=== PATIENT | male | born 1970 | race Two or more races ===

== ENCOUNTER 2017-01-28 16:55 | Inpatient (IN) | payer SELFPAY ==
[~2017-01-28] VITALS: Ht 177.8 cm; Wt 73.0 kg
[~2017-01-28 16:55] MED LIST: IOHEXOL-300 100 ML BOTTLE ONE; SODIUM CHLORIDE 0.9% 10ML VIAL ONE
[2017-01-28] MEDS ORDERED: KETOROLAC 30MG/ML VIAL IV STA (17:22)
[2017-01-28] MEDS ORDERED: SODIUM CHLORIDE 0.9% 1,000 ML IV ONE (17:22)
[2017-01-28 17:39] LABS: BASOPHILS % 0.7 % (0.0-2.0); EOSINOPHILS % 3.2 % (0.0-5.0); HEMATOCRIT. 43.9 % (42.0-52.0); HEMOGLOBIN. 15.2 g/dL (14.0-18.0); LYMPHOCYTES % 24.9 % (20.0-50.0); MEAN CORPUSCULAR HEMOGLOBIN 32.1 pg (28.0-32.0); MEAN CORPUSCULAR VOLUME 92.4 fL (80.0-94.0); MEAN PLATELET VOLUME 8.4 fl (7.4-10.4); MONOCYTES % 11.7 % (2.0-8.0); NEUTROPHILS % 59.5 % (40.0-76.0); PLATELET 232 x1000/uL (130-400); RED BLOOD CELL COUNT 4.75 mill/uL (4.7-6.1); RED CELL DISTRIBUTION WIDTH 13.4 % (11.6-14.6)
[2017-01-28 17:41] LABS: CHLORIDE 107 mEq/L (98-107)
[2017-01-28 17:44] LABS: CARBON DIOXIDE 28 mEq/L (21-32)
[2017-01-28] MEDS ORDERED: ONDANSETRON HCL 4MG/2ML VIAL IV STA (18:37)
[2017-01-28] MEDS ORDERED: MORPHINE SULFATE 4 MG/ML CPJ (NOT FOR IM USE) IV STA (18:37)
[2017-01-28 18:53] LABS: CLARITY URINE CLEAR (CLEAR); COLOR URINE YELLOW (YELLOW); GLUCOSE URINE NEGATIVE (NEGATIVE); KETONES URINE NEGATIVE (NEGATIVE); LEUKOCYTE ESTERASE URINE NEGATIVE (NEGATIVE); NITRITE URINE NEGATIVE (NEGATIVE); OCCULT BLOOD URINE NEGATIVE (NEGATIVE); PROTEIN URINE NEGATIVE (NEGATIVE); SPECIFIC GRAVITY URINE 1.011 (1.005-1.030); UROBILINOGEN URINE 0.2 E.U./dL (0.2-1.0)
[2017-01-28] MEDS ORDERED: LEVOFLOXACIN 750MG PREMIX 150 ML IV ONE (20:30)
[2017-01-28] MEDS ORDERED: SODIUM CHLORIDE 0.9% 1000ML BAG (SEPSIS BOLUS) IV ONE (20:30)
[2017-01-28] MEDS ORDERED: MORPHINE SULFATE 4 MG/ML CPJ (NOT FOR IM USE) IV ONE (21:00)
[2017-01-28] MEDS ORDERED: CLONIDINE 0.1MG TABLET PO PRN (21:30)
[2017-01-28] MEDS ORDERED: MAGNESIUM/ALUMINUM HYDROXIDE/SIMETHICONE 30ML UDC PO PRN (21:30)
[2017-01-28] MEDS ORDERED: DOCUSATE SODIUM 100MG CAPSULE PO PRN (21:30)
[2017-01-28] MEDS ORDERED: NA PHOS,M-B/NA PHOS,DI-BA ENEMA 118ML PR PRN (21:30)
[2017-01-28] MEDS ORDERED: LORAZEPAM 2MG/ML CPJ IV PRN (21:30)
[2017-01-28] MEDS ORDERED: IPRATROPIUM/ALBUTEROL 0.5-3(2.5)MG/3ML NEB INH PRN (21:30)
[2017-01-28] MEDS ORDERED: NITROGLYCERIN 0.4MG TABLET SL SL PRN (21:30)
[2017-01-28] MEDS ORDERED: GUAIFENESIN 200MG/10ML SUGAR FREE UDC PO PRN (21:30)
[2017-01-28] MEDS ORDERED: ACETAMINOPHEN 325MG TABLET PO PRN (21:30)
[2017-01-28] MEDS ORDERED: DIPHENHYDRAMINE 50MG/ML VIAL IV PRN (21:30)
[2017-01-28] MEDS ORDERED: ONDANSETRON HCL 4MG/2ML VIAL IV PRN (21:30)
[2017-01-28 21:40] LABS: ETHANOL BLOOD < 10 mg/dL
[2017-01-28 21:45] LABS: HDL CHOLESTEROL 37 mg/dL (40-59); LDL CHOLESTEROL 125 mg/dL (5-100)
[2017-01-28 23:11] VITALS: BP 101/61
[2017-01-28] MEDS ORDERED: ZOLPIDEM TARTRATE 5MG TABLET PO PRN (23:30)
[2017-01-29] MEDS: KETOROLAC 15MG/ML VIAL IV PRN ×2 (00:07→09:29)
[2017-01-29] MEDS ORDERED: AZITHROMYCIN 500 MG in DEXT 5% WATER 250 ML IV SCH (02:00)
[2017-01-29] MEDS ORDERED: CEFTRIAXONE 1 G PREMIX 50 ML IV SCH (03:00)
[2017-01-29 04:00] VITALS: BP 105/62
[2017-01-29 05:26] LABS: *AMPHETAMINES SCREEN URINE NEGATIVE (NEGATIVE); *BARBITURATES SCREEN URINE NEGATIVE (NEGATIVE); *BENZODIAZEPINES SCREEN URINE NEGATIVE (NEGATIVE); *COCAINE SCREEN URINE NEGATIVE (NEGATIVE); CANNABINOID URINE SCREEN NEGATIVE (NEGATIVE); METHADONE URINE SCREEN NEGATIVE (NEGATIVE); OPIATES URINE SCREEN PRESUMTIVE POSITIVE (NEGATIVE); PHENCYCLIDINE URINE SCREEN NEGATIVE (NEGATIVE)
[2017-01-29 08:00] VITALS: BP 114/69
[2017-01-29] MEDS ORDERED: GUAIFENESIN/DM 600MG/30MG ER TAB 12HR PO SCH (09:00)
[2017-01-29] MEDS ORDERED: PANTOPRAZOLE SODIUM 40 MG/VIAL IV SCH (09:00)
[2017-01-29 12:00] VITALS: BP 120/68
[2017-01-29 12:59] VITALS: BP 120/68
== END 2017-01-29 13:50 | disposition home or self-care (01) | DRG 139 ==
LOC: ER 17:38 → 6EST 21:13 → ENRESERV 21:44
PROVIDERS: ADMIT Internal Medicine; ATTEND Internal Medicine
DX: J18.9 Pneumonia, unspecified organism (principal); M54.9 Dorsalgia, unspecified
CPT/HCPCS: 36415; 74176; 74177; 80048; 80061; 80076; 80305; 81003; 83036; 83605; 83690; 85025; 87040; 87086; 96361; 96365; 96375; 99285; A4216; C9113; G0482; J0456; J0696; J1885; J1956; J2270; J2405; J7030; J7050; J7060; Q9967